=== PATIENT | male | born 1965 | race Caucasian/White ===

== ENCOUNTER → 2019-05-14 15:20 | Outpatient (CLI) | payer OTHER, SELFPAY ==
--- NOTE | ~2019-05-14 | XR_ITS ---
XR ankle RT 2V DATE: 05/14/2019 15:40 INDICATION: Right ankle and foot injury TECHNIQUE: AP and lateral views COMPARISON: None FINDINGS: There is osteoarthritic change at the tibiotalar joint. There is a large chronic ossicle and a smaller ossicle adjacent to the medial malleolus. There is mild soft tissue swelling, greater laterally. No fracture or dislocation of the ankle or dis ruption of the ankle mortise is detected. There is plantar calcaneal enthesopathy. IMPRESSION: No fracture or dislocation; mild soft tissue swelling, greater laterally Reviewed, dictated and finalized at location A. IMPRESSION: No fracture or dislocation; mild soft tissue swelling, greater late rally
--- NOTE | ~2019-05-14 | XR_ITS ---
XR foot RT 2V DATE: 05/14/2019 15:40 INDICATION: Injury TECHNIQUE: AP and lateral views COMPARISON: None FINDINGS: There is hallux valgus and bunion deformity. There is osteoarthritis at the first metatarsophalangeal joint, first tarsometatarsal and tibiotalar joints. Plantar calcaneal enthesopathy. No fracture or dislocation, periosteal reaction or bone destruction. 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
== END ==
PROVIDERS: PCP Family Medicine; Visit Provider Physician Assistant Medical
DX: M20.11 Hallux valgus (acquired), right foot (principal); M19.071 Primary osteoarthritis, right ankle and foot; M77.31 Calcaneal spur, right foot
CPT/HCPCS: 73600; 73620

== ENCOUNTER → 2019-12-22 08:59 | Outpatient (CLI) | payer OTHER, SELFPAY ==
--- NOTE | ~2019-12-22 | US_ITS ---
EXAMINATION: US abdomen complete EXAM DATE: 12/22/2019 09:26 INDICATION: R10.11 - Right upper quadrant pain TECHNIQUE: Multiple grayscale and Doppler images of the complete abdomen were obtained (by a technolo gist who performed the scan) and subsequently reviewed. Comparison is made to prior examination from 07/08/2018. FINDINGS: The abdominal aorta is normal in caliber. Visualized portion IVC is patent. The pancreatic head a nd body are normal in appearance. The pancreatic tail is not visualized. Mildly echogenic liver parenchyma, hepatic steatosis. There are no focal liver lesions identified. There is no evidence of intrahepatic biliary duct dilation. Portal venous flow was seen in the hepa topedal, normal direction and has normal Doppler waveform. Common bile duct measures 4 mm, which is normal. The gallbladder wall is normal in thickness, with ex pected amount of distention. No sonographic evidence of pericholecystic fluid. There is no cholelit hiases. Technologist performing exam reports patient did not demonstrate sonographic Torres's sign. Please note that this sign is less reliable in patients who have received pain medication. Right kidney: There is normal contour and echogenicity. It measures 10.7 x 5.5 x 5.9 centimeters. There are no focal renal lesions identified. There is no hydronephrosis. Left kidney: There is normal contour and echogenicity. It measures 12.7 x 6.4 x 6.8 centimeters. T here are no focal renal lesions identified. There is no hydronephrosis. The spleen measures 14 centimeters and is borderline enlarged, but unchanged compared to 2019. IMPRESSION: 1. Borderline splenomegaly, unchanged. 2. Hepatic steatosis. Reviewed, dictated and finalized at location A. DISEASE MANAGEMENT
== END ==
PROVIDERS: PCP Family Medicine; Visit Provider Family Medicine
DX: R10.11 Right upper quadrant pain (principal); K76.0 Fatty (change of) liver, not elsewhere classified
CPT/HCPCS: 76700

== ENCOUNTER 2021-05-27 07:40 | Outpatient (CLI) | payer OTHER, SELFPAY ==
--- NOTE | ~2021-05-27 | CT_ITS ---
EXAMINATION: CT sinus wo con EXAM DATE: 05/27/2021 07:59 INDICATION: J34.2 Deviated septum, left jaw pain, left nasal polyp . TECHNIQUE: Spiral CT of the sinuses was acquired in the axial plane. Coronal and sagittal reformatte d images were also reviewed. The dose-length product (DLP) for this examination was 275.33 mGy-cm. Iterative reconstruction (ASIR) was used as dose reduction technique. There is no prior study for co mparison. FINDINGS: The sinuses are normally developed. There is some opacity in the left nasal cavity, medi al to the left middle turbinate, and in the anterior ethmoid air cell, could be polyp and/or mucoperi osteal thickening. The sinuses are otherwise well aerated. The ostiomeatal units are patent. There is no sinus wall thickening. There is mild to moderate rightward nasal septal deviation. The mast oid air cells and middle ears are well aerated. External auditory canals are patent. The orbits a nd visualized soft tissues are unremarkable. IMPRESSION: 1. Left nasal cavity, anterior ethmoid polyp or mucoperiosteal thickening. 2. Mild to moderate rightward nasal septal deviation. Reviewed, dictated and finalized at location A.
== END 2021-05-27 07:41 | disposition home or self-care (01) ==
LOC: CHSIMG 07:41
PROVIDERS: PCP Family Medicine; Visit Provider Otolaryngology
DX: J32.9 Chronic sinusitis, unspecified (principal); J34.2 Deviated nasal septum; J34.3 Hypertrophy of nasal turbinates; J34.89 Other specified disorders of nose and nasal sinuses; J33.9 Nasal polyp, unspecified; R51.9 Headache, unspecified
CPT/HCPCS: 70486

== ENCOUNTER → 2021-06-08 14:51 | Outpatient (CLI) | payer OTHER, SELFPAY ==
--- NOTE | ~2021-06-08 | MR_ITS ---
EXAMINATION: MR orbits face neck wo/w con DATE: 06/08/2021 16:49 INDICATION: Encephalocele of other sites. Nasal polyp. TECHNIQUE: Magnetic resonance imaging (MRI) of the face was performed without and with 20 mL MultiHan ce intravenous contrast. COMPARISON: CT sinuses 05/27/2021 FINDINGS: There is an enhancing mass in the left nasal cavity that is contiguous with the anterior cr ibriform plate. The mass measures 4.0 x 2.0 x 0.4 cm. There is no fluid component to suggest an encep halocele. The pituitary is normal. The orbits are normal. IMPRESSION: 1. Polyp in left nasal cavity. Reviewed, dictated and finalized at location B.
[2021-06-08 15:28] LABS: Estimated Glomerular Filt Rate > 60
== END ==
PROVIDERS: PCP Family Medicine; Visit Provider Otolaryngology
DX: Q01.8 Encephalocele of other sites (principal); J33.0 Polyp of nasal cavity
CPT/HCPCS: 70543; A9577

== ENCOUNTER 2021-07-06 15:19 | Outpatient (CLI) | payer OTHER, SELFPAY ==
--- NOTE | 2021-07-06 15:30 | ECG_ITS ---
Measurements Intervals [place] Rate: 74 P: 44 ND: 140 QRS: -17 QRSD: 133 T: 30 QT: 400 QTc: 445 Interpretive Statements SINUS RHYTHM INTRAVENTRICULAR CONDUCTION DELAY POSSIBLE LATERAL MYOCARDIAL INFARCTION, PROBABLY OLD NO PREVIOUS ECG AVAILABLE FOR COMPARISON Electronically Signed On 07-06-2021 15:36:04 CDT by Jeremy Sharpe M.D.
[2021-07-06 15:53] LABS: Anion Gap 7 mmol/L (8-16); Blood Urea Nitrogen 15 mg/dL (9-20); Calcium 9.4 mg/dL (8.4-10.2); Carbon Dioxide 32 mmol/L (22-30); Chloride 102 mmol/L (98-107); Estimated Glomerular Filt Rate > 60; Glucose 98 mg/dL (65-110); Potassium 4.7 mmol/L (3.4-5.0); Sodium 141 mmol/L (137-145)
== END 2021-07-06 15:20 | disposition home or self-care (01) ==
LOC: ANHSURGERY 15:22
PROVIDERS: Anesthesiology; PCP Family Medicine; Visit Provider Otolaryngology
DX: I10 Essential (primary) hypertension (principal); Z79.899 Other long term (current) drug therapy; Z01.818 Encounter for other preprocedural examination; I45.9 Conduction disorder, unspecified
CPT/HCPCS: 36415; 80048; 93005

== ENCOUNTER 2021-07-08 01:37 | Day surgery (SDC) | payer OTHER, SELFPAY ==
[2021-07-05 09:41] VITALS: BMI 36.8
--- NOTE | 2021-07-05 09:47 | PC.NURSE ---
Report to the Outpatient Waiting Room, entrance under the green pavilion located off [facility], at time __0700 on date _07/08/21 . OR Time: 0900__. - You and your visitor will be asked a series of questions to screen for COVID 19 for your protection. - Only one visitor is allowed at this time. - The patient visitor is requested to leave or wait in car when not with patient. - A mask is required within the hospital. Patients may have clear liquids (water, carbonated beverages, clear teas, apple juice) until 3 hours prior to surgery with a maximum of 20 ounces. - No food from midnight until time of surgery - Infants may have breast milk until 4 hours before surgery, formula 6 hours prior to surgery. - Children will be allowed to drink immediately following surgery. If applicable, please bring a bottle or sippy cup to assist with drinking. Juice, water, soda, and popsicles are readily available. For infants on formula, please bring formula the day of surgery. Pacifiers are allowed. Take the following medications with a SIP of water the morning of surgery: ___NONE Medications to discontinue per physician VITAMINS Date to take last dose 07/05/21 Please no make-up, nail serbian, hairspray, perfume, deodorant, or body powder the day of surgery. No jewelry (including any body piercings) or valuables the day of surgery, leave them at home. Please take a shower or bath the night before, or the morning of, surgery with an antibacterial soap. Wear comfortable, loose fitting clothing. Children are encouraged to wear pajamas. - Jewelry must be removed prior to entering the operating room. Rings and piercings that are not removed may be cut off. - The hospital will not accept responsibility for valuables. - Please leave all valuables, including medications, at home the day of surgery. If you are going home after surgery, a licensed helper/driver must drive you home. - NO public transportation without another adult. - We recommend that an adult stay with you for 24 hours following discharge. - We also recommend that you do not drive, make important decision, drink alcoholic beverages, or take any drugs that were not prescribed by your health care provider for at least 24 hours after your discharge time. For Pediatric surgeries, we recommend two adults accompany the child home (only one inside the building at this time). Follow any additional instructions given to you from your surgeon. If you or anyone in your household have experienced Covid symptoms in the past week, please notify your surgeon or the nurse liaison at the phone number below for possible testing. Telephone instructions given to and asked if any additional questions and then verbalized understanding. Patient advised to call surgeon office or pre surgery nurse liaison [phone] if any additional questions.
--- NOTE | 2021-07-07 08:43 | PM.IMHP ---
H&P: HPI History of Present Illness Date/Time: 07/07/21 08:43 Chief Complaint: Nasal obstruction nasal congestion septal deviation turbinate hypertrophy nasal polyps Narrative: patient presents for planned surgical procedure no change in symptoms no change in history PMFSH Past Medical History Medical History BMI 35.0-35.9,adult BMI 36.0-36.9,adult Family History Family History Father Malignant neoplasm of prostate Mother COPD (chronic obstructive pulmonary disease) Dementia Tobacco abuse Sibling Breast cancer COVID-19 Social History Social History Smoking status: Never smoker Tobacco type: cigars Second hand tobacco smoke exposure: Yes Additional smoking assessment comments: 2 CIGARS PER YEAR Alcohol intake: current Drinks per week: 15 Substance use: former Substance use type: does not use Additional occupation/education comments: Fitness Trainer Gender identity (if verbalized by the patient): Male Sexual Orientation (if Verbalized by the Patient): Straight or Heterosexual Meds Home Medications and Allergies Home Medications Medication Instructions Recorded Confirmed Type hydrochlorothiazide 25 mg tablet 50 mg PO DAILY 12/07/20 07/05/21 History azelastine 137 mcg (0.1 %) nasal 1 spray intranasal Q12H PRN 07/05/21 07/05/21 History spray aerosol Congestion fluocinolone acetonide oil 0.01 % 5 drp otic (ear) BID PRN Itching 07/05/21 07/05/21 History ear drops (DermOtic Oil) fluticasone propionate 50 2 spray intranasal BID PRN 07/05/21 07/05/21 History mcg/actuation nasal Congestion spray,suspension (Flonase Allergy Relief) multivitamin with minerals-folic 1 tablet PO DAILY 07/05/21 07/05/21 History acid 200 mcg chewable tablet (Adult Multivitamin Gummies) omega 2-nvv-nca-fish oil 1,200 mg 1 cap PO DAILY 07/05/21 07/05/21 History (144 mg-216 mg) capsule (Fish Oil) prednisone 10 mg tablet 10 mg PO DAILY #3 tabs 07/05/21 Rx Allergies Allergy/AdvReac Type Severity Reaction Status Date / Time No Known Allergies Allergy Verified 05/25/21 07:48 Exam Narrative: normal face exam normal ear exam nasal exam significant for turbinate hypertrophy septal deviation polyps are visible on the left side it middle turbinate with polyps growing from it as well. Assessment and Plan Assessment and plan (1) Nasal septal deviation: Code(s): J34.2 - Deviated nasal septum Status: Acute Assessment and Plan: Plan is for the operating room image guided left-sided middle turbinectomy polypectomy endoscopic assisted septoplasty turbinate reduction submucosally with outfracture. Risks were discussed including high risk of CSF leak brain damage risk of blindness change in vision postoperative bleeding septal perforation need for further procedures need for time off work need for pain medication damage to any structure above the clavicles by myself, damage to any structure in the maintenance and reduction anesthesia. Patent patient voiced understanding and agreed. We also discussed that the treatment for polyps his steroids given the location of these polyps along the skull base the patient would benefit from an xhance type device. patient voiced understanding of this as well. (2) Hypertrophy of both inferior nasal turbinates: Code(s): J34.3 - Hypertrophy of nasal turbinates Status: Acute (3) Nasal obstruction: Code(s): J34.89 - Other specified disorders of nose and nasal sinuses Status: Acute (4) Chronic sinusitis: Code(s): J32.9 - Chronic sinusitis, unspecified Status: Acute (5) Nasal polyps: Code(s): J33.9 - Nasal polyp, unspecified Status: Acute
[2021-07-08] VITALS (8 sets, daily range): BP systolic 144–184; BP diastolic 86–98; PULSE 66–85; RESP 14–21; TEMP 36.7–36.8; O2SAT 92–100
[2021-07-08] MEDS: ACETAMINOPHEN 500 MG TABLET 1000 MG PO (06:42)
[2021-07-08] MEDS: LACTATED RINGERS 1,000 ML 30 ML IV CONT (06:49)
--- NOTE | 2021-07-08 06:54 | WPDANESEPPF ---
Anes - Initial Pre Proc Eval Procedure: Operation Date: 07/08/21 07:30 Proposed Procedures p Image Guided Bilateral Inferior Turbinectomy with Outfracture, Left Polypectomy - Henrique Portillo MD s Endoscopic Septoplasty - Henrique Portillo MD Date/Time: 07/08/21 06:54 Surgeon: Henrique Portillo MD Pre Op Diagnosis: Chronic Sinusitis Patient Data Age: 55 Gender: M Height: 1.8 m Weight: 120 kg Allergies Allergy/AdvReac Type Severity Reaction Status Date / Time No Known Allergies Allergy Verified 07/08/21 06:38 Home Medications Medication Instructions Recorded Confirmed Type hydrochlorothiazide 25 mg tablet 50 mg PO DAILY 12/07/20 07/08/21 History azelastine 137 mcg (0.1 %) nasal 1 spray intranasal Q12H PRN 07/05/21 07/08/21 History spray aerosol Congestion fluocinolone acetonide oil 0.01 % 5 drp otic (ear) BID PRN Itching 07/05/21 07/08/21 History ear drops (DermOtic Oil) fluticasone propionate 50 2 spray intranasal BID PRN 07/05/21 07/08/21 History mcg/actuation nasal Congestion spray,suspension (Flonase Allergy Relief) multivitamin with minerals-folic 1 tablet PO DAILY 07/05/21 07/08/21 History acid 200 mcg chewable tablet (Adult Multivitamin Gummies) omega 4-mhd-tmk-fish oil 1,200 mg 1 cap PO DAILY 07/05/21 07/08/21 History (144 mg-216 mg) capsule (Fish Oil) prednisone 10 mg tablet 10 mg PO DAILY #3 tabs 07/05/21 07/08/21 Rx Patient hx anesthesia problems: none Family hx anesthesia problems: none Results Review: All pre-operative results and documents have been reviewed as part of the pre-operative evaluation. [facility] Past Medical History Medical History (Updated 05/30/21 @ 08:03 by Henrique Portillo MD) BMI 35.0-35.9,adult BMI 36.0-36.9,adult Surgical History Surgical History (Updated 07/08/21 @ 06:54 by Derik Ovalle MD) History of carpal tunnel surgery Family History Family History Father Malignant neoplasm of prostate Mother COPD (chronic obstructive pulmonary disease) Dementia Tobacco abuse Sibling Breast cancer COVID-19 Social History Social History Smoking status: Never smoker Tobacco type: cigars Second hand tobacco smoke exposure: Yes Additional smoking assessment comments: 2 CIGARS PER YEAR Alcohol intake: current Drinks per week: 15 Substance use: former Substance use type: does not use Living arrangements: with family 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 Informed Consent: The patient's anesthetic plan and its attendant risks and benefits were discussed with the patient/family/POA. Questions were solicited and answers provided to the satisfaction of the patient/family/POA.
--- NOTE | 2021-07-08 07:18 | WPDHPUPDATE1 ---
History and Physical Update Update Date/Time: 07/08/21 07:18 History and Physical has been reviewed, including an updated exam of the patient. There are NO changes in the patient's condition. Risks, benefits, and alternatives have been discussed and questions answered. Patient agrees to proceed with procedure.
[2021-07-08] MEDS: ceFAZolin 2 GM/D5W 50 ML 2 GM/50 ML BAG IVPB (07:33)
[2021-07-08] MEDS: OXYMETAZOLINE HCL 0.05% NAS 15 ML BTL (*BKC) 1 SPRAY NASAL (07:43)
--- NOTE | 2021-07-08 09:36 | P.OP_ITS ---
Procedure Note - Detailed Date of Procedure 07/08/21 Pre-op Diagnosis Chronic Sinusitis left sinonasal tumor, nasal obstruction, nasal congestion, septal deviation, turbinate hypertrophy Post-op Diagnosis Same Procedure Performed Endoscopic assisted septoplasty image guided resection of left skull base tumor/polypectomy bilateral submucosal resection of inferior turbinates with outfracture Surgeon Henrique Portillo MD Anesthesia General Indications See above Findings Right septal deviation corrected turbinate hypertrophy corrected left tumor emanating from the skull base removed skull base not violated Description of Procedure Patient identified consent verified. Patient brought operating room. Time-out performed. General anesthesia induced endotracheal tube secured taped left lower lip. Image guidance initiated confirmed. Patient prepped and draped. Second time-out performed. Afrin-soaked pledgets placed allowed to sit for 5 minutes then removed. 0 degree degree endoscope utilized 10 cc total 0% l idocaine 1 100,000 parts epinephrine injected in the bilateral nasal septum and inferior turbinates inferior turbinates reduced 2 mm blade in the submucosal plane bilaterally then outfractured with Blanco good reduction. [place] incision made left side with 15 blade left mucoperichondrial flap with a tear created 7 Syriac suction osteotome utilized to cross over right nasal septal flap elevated no concomitant perforation and or tear no left-sided perforation for that matter. Deviated septum removed combination [place] Dugan forceps Therese and osteotome. [place] incision closed with 3 interrupted 5 0 fast gut sutures. Left middle turbinate slightly lateralized tumor very obvious removed combination microdebrider Therese forceps sufficient amount sent for pathologic analysis should this be lymphoma. Sent for fresh not in formalin. Bleeding was controlled with intermittent application Afrin-soaked pledgets. Small amount of Nova pack placed against the skull base on the left middle turbinate placed back into a neutral position. Stauffer splints then placed. After the bilateral nasal passages were suctioned of the choana. Total blood loss about 35 cc. Stauffer splints sutured anteriorly using a 3-0 mattress nylon suture. Care the patient given Anesthesiology. I performed all dictated portions of the procedure. Complications none apparent. Patient taken to PACU. Estimated Blood Loss 35 Drains No Packing Yes Pathology Yes Complications No immediate complications Condition Stable Disposition PACU
[2021-07-08] MEDS: fentaNYL CITRATE INJ (*CRX) 100 MCG/2 ML VIAL 25 MCG IV PUSH ×2 (09:43→10:39)
[2021-07-08] MEDS: oxyCODONE HCL (*CRX) 5 MG TAB IR PO (10:24)
[2021-07-08] MEDS: ONDANSETRON HCL ODT 4 MG TABLET PO (11:24)
== END 2021-07-08 11:20 | disposition home or self-care (01) ==
PROVIDERS: PCP Family Medicine; Visit Provider Otolaryngology
PROC: (CPT 30140; principal; 2021-07-08 07:30)
PROC: (CPT 30520; 2021-07-08 07:30)
DX: J32.9 Chronic sinusitis, unspecified (principal); J34.2 Deviated nasal septum; J34.3 Hypertrophy of nasal turbinates; J34.89 Other specified disorders of nose and nasal sinuses; J33.9 Nasal polyp, unspecified; J33.8 Other polyp of sinus; Z72.0 Tobacco use; E66.9 Obesity, unspecified; Z68.36 Body mass index [BMI] 36.0-36.9, adult
CPT/HCPCS: 30140; 31299; 61782; 36415; 80048; 88305; 88307; 93005; A9270; J0330; J0690; J1100; J2250; J2405; J2704; J3010; J7120

== ENCOUNTER 2023-06-12 07:46 | Outpatient (CLI) | payer OTHER, SELFPAY ==
--- NOTE | ~2023-06-12 | US_ITS ---
Abdominal Sonogram: Real-time sonographic imaging of the abdomen was performed. Clinical History: Abdominal pain Findings: The liver appears echogenic, with no evidence of mass lesion or bile duct dilatation. Main portal vein demonstrates normal direction of flow. The spleen is minimally enlarged, at 14.1 cm in l ength. The gallbladder is well distended, and demonstrates layering sludge. No gallbladder wall thic kening. The common bile duct measures 5 mm. The visualized pancreas, aorta, and IVC are unremarkable . The right kidney measures 11.1 cm in length and the left kidney measures 11.8 cm. There is no hyd ronephrosis or renal calculus. Impression: Diffuse fatty infiltration of the liver. Minimal splenomegaly. Gallbladder sludge. Reviewed, dictated and finalized at location . Impression: Diffuse fatty infiltration of the liver. Minimal splenomegaly. Gallbladder sludge.
== END 2023-06-12 07:47 ==
PROVIDERS: PCP Family Medicine; Visit Provider Physician Assistant Medical
DX: R10.11 Right upper quadrant pain (principal); K76.0 Fatty (change of) liver, not elsewhere classified
CPT/HCPCS: 76700

== ENCOUNTER 2023-06-28 01:15 | Day surgery (SDC) | payer OTHER, SELFPAY ==
[2023-06-18 13:23] VITALS: BMI 36.6
[2023-06-28 08:42] VITALS: BP 143/80; PULSE 73; RESP 18; TEMP 36.2; O2SAT 98; BMI 35.6
[2023-06-28] MEDS: LACTATED RINGERS 1,000 ML 150 ML IV CONT (09:04)
--- NOTE | 2023-06-28 09:12 | WPDANESEPPF ---
Anes - Initial Pre Proc Eval Procedure: Operation Date: 06/28/23 10:00 Proposed Procedures p Screening Colonoscopy - Zeke Abarca DO Date/Time: 06/28/23 09:12 Surgeon: Zeke Abarca DO Pre Op Diagnosis: Screening for malignant neoplasm of colon Patient Data Age: 57 Gender: M Height: 1.8 m Weight: 115.9 kg Last Vital Signs Temp 36.2 C L 06/28/23 08:42 Pulse 73 06/28/23 08:42 Resp 18 06/28/23 08:42 BP 143/80 H 06/28/23 08:42 Pulse Ox 98 06/28/23 08:42 O2 Del Method Room Air 06/28/23 08:42 Allergies Allergy/AdvReac Type Severity Reaction Status Date / Time No Known Allergies Allergy Verified 06/28/23 08:49 Home Medications Medication Instructions Recorded Confirmed Type hydrochlorothiazide 25 mg tablet 50 mg PO DAILY 12/07/20 06/28/23 History vaxvjcny-hw-wpgfm 300 mcg-K 60 1 tablet PO DAILY 04/17/22 06/28/23 History mcg-lycop 600 mcg-lutein 300 mcg tablet (Men 50 Plus Multivitamin) omega 4-ldp-afa-fish oil 1,200 mg 1 cap PO DAILY 04/17/22 06/28/23 History (144 mg-216 mg) capsule (Fish Oil) Patient hx anesthesia problems: none Family hx anesthesia problems: none Results Review: All pre-operative results and documents have been reviewed as part of the pre-operative evaluation. [facility] Past Medical History Medical History Bilateral foot pain BMI 38.0-38.9,adult Screen for colon cancer Surgical History Surgical History History of carpal tunnel surgery Family History Family History Father Malignant neoplasm of prostate Mother COPD (chronic obstructive pulmonary disease) Dementia Tobacco abuse Sibling Breast cancer COVID-19 Social History Social History Smoking status: Never smoker Tobacco type: cigars Smokeless tobacco user: chewing tobacco Second hand tobacco smoke exposure: Yes Additional smoking assessment comments: 2 CIGARS PER YEAR Alcohol intake: current Drinks per week: 10 Substance use: former Substance use type: does not use Living arrangements: with family Occupation/Education: occupation Additional occupation/education comments: Dye Worker Gender identity (if verbalized by the patient): Male Sexual Orientation (if Verbalized by the Patient): Straight or Heterosexual Spiritual care concerns: No Anes - Eval Final PreProcedure Day of Procedure 06/28/23 09:12 Patient weight: obese Heart: regular rate and rhythm Lungs: clear to auscultation Airway: Mallampati scale Neurological: alert and oriented Last oral intake: >/= 8 hours ASA classification: III Emergent: no Anesthetic plan: proceed Anesthesia type and monitoring: general GIVS and standard monitoring Results Review: All pre-operative results and documents have been reviewed as part of the pre-operative evaluation. Informed Consent: The patient's anesthetic plan and its attendant risks and benefits were discussed with the patient/family/POA. Questions were solicited and answers provided to the satisfaction of the patient/family/POA.
--- NOTE | 2023-06-28 09:28 | PM.IMHP ---
H&P: HPI History of Present Illness Date/Time: 06/28/23 09:28 Chief Complaint: screening for colorectal cancer Narrative: this is a 57-year-old man who presents for colonoscopy. His last colonoscopy was 5 years ago. He had 2 small hyperplastic polyps removed at that time. The patient states that he does notice some occasional blood in his stool. He denies any family history of colon cancer. Review of Systems Review of Systems: All systems reviewed & are unremarkable except as noted in HPI and below Constitutional: Constitutional: Denies chills, Denies fever(s), Denies headache(s) and Denies weight loss Eyes: Eyes: Denies change in vision ENT: Denies dizziness, Denies headache(s), Denies neck mass and Denies throat swelling Cardiovascular: Cardiovascular: Denies chest pain, Denies lightheadedness and Denies dyspnea Respiratory: Respiratory: Denies cough, Denies dyspnea and Denies wheezing Gastrointestinal: Gastrointestinal: Denies abdominal pain, Denies change in bowel habits, Denies nausea and Denies vomiting Genitourinary: Genitourinary: Denies hematuria and Denies dysuria Musculoskeletal: Musculoskeletal: Reports as per HPI Integumentary/Breasts: Skin/Breast: Reports as per HPI Neurologic: Denies dizziness and Denies headache(s) Allergic/Immunologic: Allergic/Immunologic: Denies throat swelling and Denies wheezing PMFSH Past Medical History Medical History Bilateral foot pain BMI 38.0-38.9,adult Screen for colon cancer Surgical History Surgical History History of carpal tunnel surgery Family History Family History Father Malignant neoplasm of prostate Mother COPD (chronic obstructive pulmonary disease) Dementia Tobacco abuse Sibling Breast cancer COVID-19 Social History Social History Smoking status: Never smoker Tobacco type: cigars Smokeless tobacco user: chewing tobacco Second hand tobacco smoke exposure: Yes Additional smoking assessment comments: 2 CIGARS PER YEAR Alcohol intake: current Drinks per week: 10 Substance use: former Substance use type: does not use Living arrangements: with family Occupation/Education: occupation 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 [employer] Gender identity (if verbalized by the patient): Male Sexual Orientation (if Verbalized by the Patient): Straight or Heterosexual Spiritual care concerns: No Meds Home Medications and Allergies Home Medications Medication Instructions Recorded Confirmed Type hydrochlorothiazide 25 mg tablet 50 mg PO DAILY 12/07/20 06/28/23 History iqgdzndv-dl-cblvl 300 mcg-K 60 1 tablet PO DAILY 04/17/22 06/28/23 History mcg-lycop 600 mcg-lutein 300 mcg tablet (Men 50 Plus Multivitamin) omega 9-xue-shw-fish oil 1,200 mg 1 cap PO DAILY 04/17/22 06/28/23 History (144 mg-216 mg) capsule (Fish Oil) Allergies Allergy/AdvReac Type Severity Reaction Status Date / Time No Known Allergies Allergy Verified 06/28/23 08:49 Vital Signs Vital Signs - 24 hr 06/28/23 08:42 Temperature 36.2 C L Pulse Rate 73 Respiratory Rate 18 Blood Pressure 143/80 H Pulse Oximetry 98 Oxygen Delivery Room Air Exam Const: General: no acute distress and alert Orientation/consciousness: patient oriented x3 HENMT: Head: normocephalic and atraumatic Ears: hearing grossly normal bilaterally Face/Nose/Sinus: Normal nares present Mouth: Yes Normal oral and palatal mucosa present Eyes: Periorbital: periorbital findings normal Sclera: sclerae normal EOM: EOMs intact bilaterally Neck: Neck: normal visual inspection, no lymphadenopathy and trachea midline Chest: Chest palpation & inspection: normal inspection of the chest Resp: Effort &
[2023-06-28 10:03] VITALS: BP 117/76; PULSE 64; RESP 18; O2SAT 97
[2023-06-28 10:13] VITALS: BP 125/72; PULSE 65; RESP 22; O2SAT 96
[2023-06-28 10:23] VITALS: BP 117/71; PULSE 67; RESP 15; O2SAT 97
== END 2023-06-28 10:24 | disposition home or self-care (01) ==
PROVIDERS: PCP Family Medicine; Visit Provider Surgery
PROC: 0DJD8ZZ Inspection of Lower Intestinal Tract, Via Natural or Artificial Opening Endoscopic (ICD-10-PCS; CPT 45378; principal; 2023-06-28 10:00)
DX: Z12.11 Encounter for screening for malignant neoplasm of colon (principal); D12.2 Benign neoplasm of ascending colon; D12.8 Benign neoplasm of rectum; K57.30 Diverticulosis of large intestine without perforation or abscess without bleeding; F17.220 Nicotine dependence, chewing tobacco, uncomplicated; E66.9 Obesity, unspecified; Z68.35 Body mass index [BMI] 35.0-35.9, adult
CPT/HCPCS: 45385; 88305; J2704; J7120

== ENCOUNTER 2023-07-04 07:27 | Outpatient (CLI) | payer OTHER, SELFPAY ==
--- NOTE | ~2023-07-04 | NM_ITS ---
EXAMINATION: NM hepatobiliary wo pharm DATE: 07/04/2023 09:55 INDICATION: Other specified diseases of the gallbladder. COMPARISON: Abdomen ultrasound 06/12/2023 TECHNIQUE: 5 mCi Tc-99m mebrofenin (Choletec) was administered intravenously. Scintigraphic images o f the abdomen were obtained for one hour. Then, the patient drank 8 oz Ensure, and imaging was contin ued for 60 minutes. FINDINGS: There is normal clearance of radiotracer from the blood pool. There is homogeneous tracer u ptake by the liver. Activity progresses to the bowel and gallbladder. Gallbladder ejection fraction (GBEF) was 76%. Note that with this technique, normal GBEF >= 33%. IMPRESSION: 1. Normal hepatobiliary scintigraphy. Reviewed, dictated and finalized at location A.
== END 2023-07-04 07:28 | disposition home or self-care (01) ==
PROVIDERS: PCP Family Medicine; Visit Provider Physician Assistant Medical
DX: K82.8 Other specified diseases of gallbladder (principal)
CPT/HCPCS: 78226; A9537

== ENCOUNTER 2024-03-13 12:20 | Outpatient (CLI) | payer OTHER, SELFPAY ==
--- NOTE | ~2024-03-13 | XR_ITS ---
EXAMINATION: XR chest 2V 03/13/2024 12:42 INDICATION: Flu. Upper respiratory infection. Cough and fever. PROCEDURE: 2 view chest COMPARISON: No prior studies for comparison. FINDINGS: The lungs are clear. The cardiomediastinal silhouette is within normal limits. There are no pleural effusions. There is no pneumothorax suspected. IMPRESSION: 1: NO ACUTE CARDIOPULMONARY DISEASE. Reviewed, dictated and finalized at location B. SHELL GATHERER
--- OUTSIDE RECORDS SUMMARY | 2024-03-13 12:24 | XMS_ITS | Continuity of Care Document ---
Author Name [facility] Organization [facility] Care Team Providers Care Pharmacy Intake Coordinator Name Role Phone [facility] Unavailable Unavailable Problems Combined list of problems from [facility] and [facility] facilities. It does not include entries that were removed or entered in error. Problem Status Onset Date Problem Type Date of Resolution Comments Source Chronic Rhinitis ([facility] [id number]) Active Condition [facility] Foot Pain ([facility] [id number]) Active Condition [facility] History of colonic polyp Active Condition [facility] HTN - Hypertension ([facility] [id number]) Active Condition [facility] Inclusion body myositis Active Condition [facility] Jaw pain Active Condition [facility] Mixed [facility]lipidemia Active Condition [facility] Obesity ([facility] [id number]) Active Condition [facility] Obstructive Sleep Apnea Syndrome ([facility] 95714153) Active Condition Sep 23, 2019 Entered By: ELISA LONG Comment: cpap prescribed [facility] Past history of procedure Active Condition Sep 23, 2019 Entered By: ELISA LONG Comment: 1992 left foot neuroma excisionAug 2019 Entered By: ELISA LONG Comment: ~2009 bilateral carpal tunnel releaseAug 2019 Entered By: ELISA LONG Comment: 1988, 1991 wisdom teeth extractionas (3)Sep 23, 2019 Entered By: ELISA LONG Comment: 01/2018 bilateral eye lasik surgery [facility] Tinnitus ([facility] [id number]) Active Condition [facility] Diagnosis: ICD-10-CM E66.812 Obesity, class 2 Active Diagnosis [facility] Diagnosis: ICD-10-CM E78.2 Mixed hyperlipidemia Active Diagnosis [facility] Diagnosis: ICD-10-CM I10 Essential (primary) hypertension Active Diagnosis [facility] Medications Combined list of outpatient medications from Department of Defense and Veterans Affairs facilities.Medications provided include 1) outpatient medications from the last 15 months, and 2) patient-reported medications. Medication Details Route Status Patient Instructions Prescription Expires Prescription Number Last Dispense Date Ordering Provider Order Date Order Qty Source FISH OIL 1000MG (500MG DHA/EPA) CAP,ORAL TAKE 1 CAPSULE BY MOUTH ONCE A DAY ORAL ACTIVE PACE,VICT OR M 2020 [facility] hydroCHLORO thiazide 50 MG ORAL TAB TAKE ONE TABLET BY MOUTH ONCE A DAY FOR BLOOD PRESSURE 09/26/2023 [id number] 4 MET ZACHTISA 2023 90 [facility] HYDROCHLORO THIAZIDE 50MG TAB TAKE ONE TABLET BY MOUTH ONCE A DAY FOR BLOOD PRESSURE ORAL ACTIVE 09/24/2024 [id number] 4 Prashant DIAZIMMA N [address] [facility] HYDROCHLORO THIAZIDE 50MG TAB TAKE ONE TABLET BY MOUTH ONCE A DAY FOR BLOOD PRESSURE ORAL DISCONT INUED 09/26/2023 [id number] 4 ME ZACH TTISA [address] [facility] MULTIVITAMI NS CAP/TAB TAKE ONE TABLET BY MOUTH ONCE A DAY ORAL ACTIVE PACE,VICT OR M 2019 [facility] Immunizations Combined list of available immunizations from the Department of Defense and Veterans Affairs facilities. Immunization Series Date Given Administered By Site Reaction Lot Number CVX Code Drug Historical Archeologist Status Comments Source INFLUENZA, UNSPECIFIED FORMULATION 2021 88 complet ed [facility] ZOSTER RECOMBINANT 2 2021 NONE [address] [facility] COVID-19 (PFIZER), MRNA, LNP-S, PF, 30 MCG/0.3 ML DOSE, VERNON-SUCROSE (AGES 12+ YEARS) 3 2021 217 complet ed [facility] INFLUENZA, UNSPECIFIED FORMULATION 2020 88 complet ed [facility] TDAP 2020 NONE [address] [facility] ZOSTER RECOMBINANT 1 2020 NONE [address] [facility] COVID-19 (PFIZER), MRNA, LNP-S, PF, 30 MCG/0.3 ML DOSE 2 2020 208 complet ed [facility] COVID-19 (PFIZER), MRNA, LNP-S, PF, 30 MCG/0.3 ML DOSE 1 2020 208 complet ed [facility] INFLUENZA, UNSPECIFIED FORMULATION 2019 88 complet ed [facility] Vital Signs Combined list of inpatient and outpatient Vital Signs from [facility] and [facility], ranging from 12 months to all on record, depending upon the facility. Vital Sign Value Date Comments Source SYSTOLIC BLOOD PRESSURE 135 09/24/2023 14:42:39 [facility] DIASTOLIC BLOOD PRESSURE 70 09/24/2023 14:42:39 [facility] PULSE OXIMETRY 97 09/24/2023 14:42:39 [facility] WEIGHT 263 09/24/2023 14:42:39 [facility] BMI 37 kg/m2 09/24/2023 14:42:39 [facility] PAIN 4 09/24/2023 14:42:39 [facility] HEIGHT 71 09/24/2023 14:42:[address] [facility] [facility] TEMPERATURE 98.6 09/24/2023 14:42:39 [facility] PULSE 72 09/24/2023 14:42:[address] [facility] [facility] RESPIRATION 20 09/24/2023 14:42:39 [facility] Encounters Combined list of: 1) Encounters from Department of Veterans Affairs facilities going backup to the last 18 months, not all [place] inpatient encounters are included; 2) Encounters from the Department of [facility] facilities going backup to 280 months. Location Location Details Encounter Type Encounter Number Reason For Visit Attending Provider ADM Date DC Date Status Disposition Source [facility] Outpatient Encounter [id number] KENNA GUZMAN 09/21 [facility] O/P EST MOD 30-39 MIN [id number] Diagnos is: ICD-10- CM I10 Essenti al (primar y) hyperte nsion ZACHMET VU 09/25 [facility] Outpatient Encounter [id number] 09/23 [facility] Outpatient Encounter [id number] 09/23 [facility] OFFICE O/P EST HI 40 MIN [id number] Diagnos is: ICD-10- CM E78.2 Mixed hyperli pidemia EMILY,CH IDIMMA N 09/23 [facility] Outpatient Encounter [id number] 09/24 [facility] Outpatient Encounter [id number] 10/02 [facility] [place] [id number] Diagnos is: ICD-10- CM E66.812 Obesity , class 2 [place] ,KASEY C 12/17 [facility] Outpatient Encounter [id number] 02/27 [facility] Social History Combined list of available smoking, tobacco, and other social history from Department of Defense and Veterans Affairs facilities. Social History Type Response Date Comment Sourc e Tobacco smoking status NHIS [place]-TOBACCO NEVER USED 09/24/2023 [facility] History of tobacco use [facility] NEVER USED 09/25/2022 [facility] History of tobacco use [facility]-TOBACCO NEVER USED 09/22/2021 [facility] History of tobacco use [facility]-TOBACCO FORMER USER 04/19/2020 [facility] History of tobacco use [place]-TO[place]ACCO FORMER USER 08/14/2019 [facility] This section is an empty social history section. DoD
--- OUTSIDE RECORDS SUMMARY | 2024-03-13 12:24 | XMS_ITS | Continuity of Care Document ---
Author Organization [facility] Address [address] [place] [address] Phone Care Team Providers Care Game Bird Farmer Name Role Phone Omari De MD Unavailable Unavailable Advance Directives Directive Yes / No Effective Date File Name No Information Encounters Encounter Description Practice Location Reason(s) For Visit Diagnoses Date Provider Providers Copied on Encounter [facility], [address], [place], [place], [id number], [place] tel:[phone] [address] No Information 1 Kenisha Salcido. [address], [place], [place], [place], [address], [place]. tel:[phone] Family History Family Member Type Diagnosis Age At Onset No Information Payers Payer name Insurance type Covered republican ID Authoriza tion(s) No Information Social History Type Description Quantity Date Captured Comments Sex Male Smoking Status No Information Chief Complaint And Reason For Visit No Information Reason For Referral Reason For Referral No Information History Of Present Illness Encounter Date Complaint History Of Prese nt Illness No Information Functional Status Date Functional Assessmen t No Information Instructions Date Instruction Additional Infor mation No Information Assessments Type Assessment Date No Information Patient Care Teams Name Effective Dates (start - stop) Status Members No Information
== END 2024-03-13 12:21 | disposition home or self-care (01) ==
LOC: CHSIMG 12:21
PROVIDERS: PCP Family Medicine; Visit Provider Nurse Practitioner Adult Health
DX: J10.1 Influenza due to other identified influenza virus with other respiratory manifestations (principal)
CPT/HCPCS: 71046

== ENCOUNTER 2024-09-20 19:52 | Emergency (ER) | payer OTHER, SELFPAY ==
--- NOTE | ~2024-09-20 | XR_ITS ---
EXAM: XR knee LT 3V DATE: 09/20/2024 20:38 HISTORY: pain, swelling . COMPARISON: None available. FINDINGS: Osteopenia. No fracture or dislocation. No lytic or blastic lesion. Joint spaces are maint ained. No erosion or periosteal change. Anterior soft tissue swelling. Quadriceps tendon thickening. Irregular mid and distal patellar tendon. Small-volume joint fluid. IMPRESSION: No acute osseous finding in the left knee. Small left knee joint effusion. Anterior soft tissue swelling. Quadriceps and patellar tendon findings may reflect acute or chronic tendinopathy. Reviewed, dictated and finalized at location K. IMPRESSION: No acute osseous finding in the left knee. Small left knee joint ef fusion. Anterior soft tissue swelling. Quadriceps and patellar tendon findings may reflect acute or chronic tendinopathy.
--- NOTE | ~2024-09-20 | CT_ITS ---
Noncontrast CT scan of the left knee CLINICAL HISTORY: Medial knee intracondylar quadriceps tendon injury TECHNIQUE: Axial noncontrast imaging of the left knee was performed. Sagittal and coronal reformatted images were constructed. Dose reduction technique was used on this scan by utilizing automated expos ure control and iterative reconstruction technique. The dose-length product (DLP) was 743.27 mGy-cm. Findings: No acute fracture or dislocation seen. There are minimal degenerative changes about the kne e. Joint spaces are intact. There is minimal joint effusion. There is prominent prepatellar soft tissue thickening and edema, com patible with hematoma, or possibly bursitis. No gross full-thickness quadriceps tendon tear identifie d on noncontrast CT imaging. Patellar tendon appears intact. No other soft tissue abnormality evident . IMPRESSION: Marked prepatellar soft tissue thickening/edema, compatible with hematoma versus bursitis or other po sttraumatic change/swelling. No gross evidence of high-grade quadriceps tendon tear on noncontrast CT . MRI is recommended for better evaluation of the quadriceps tendon, as indicated. Reviewed, dictated and finalized at [facility]. IMPRESSION: Marked prepatellar soft tissue thickening/edema, compatible with hematoma versu s bursitis or other posttraumatic change/swelling. No gross evidence of high-gr catarino quadriceps tendon tear on noncontrast CT. MRI is recommended for better jazmin luation of the quadriceps tendon, as indicated.
--- OUTSIDE RECORDS SUMMARY | 2024-09-20 19:55 | XMS_ITS | Continuity of Care Document ---
Author Name [facility] Organization [facility] Care Team Providers Care Diamond Assorter Name Role Phone [facility] Unavailable Unavailable Problems Combined list of problems from Department of [facility] and [facility] facilities. It does not include entries that were removed or entered in error. Problem Status Onset Date Problem Type Date of Resolution Comments Source Chronic Rhinitis ([facility] [id number]) Active Condition [facility] Foot Pain ([facility] 89737657) Active Condition [facility] History of colonic polyp Active Condition [facility] HTN - Hypertension ([facility] 87066869) Active Condition [facility] Inclusion body myositis Active Condition [facility] Jaw pain Active Condition [facility] Mixed hyperlipidemia Active Condition [facility] Obesity ([facility] 472471888) Active Condition [facility] Obstructive Sleep Apnea Syndrome ([facility] 11786089) Active Condition Sep 23, 2019 Entered By: ELISA LONG Comment: cpap prescribed [facility] Past history of procedure Active Condition Sep 23, 2019 Entered By: ELISA LONG Comment: 1992 left foot neuroma excisionAug 2019 Entered By: ELISA LONG Comment: ~2009 bilateral carpal tunnel releaseAug 2019 Entered By: ELISA LONG Comment: 1988, 1991 wisdom teeth extractionas (3)Sep 23, 2019 Entered By: ELISA LONG Comment: 01/2018 bilateral eye lasik surgery [facility] Tinnitus ([facility] [id number]) Active Condition [facility] Diagnosis: ICD-10-CM G47.33 Obstructive sleep apnea (adult) (pediatric) Active Diagnosis [facility] Diagnosis: ICD-10-CM E66.812 Obesity, class 2 Active Diagnosis [facility] Diagnosis: ICD-10-CM E78.2 Mixed hyperlipidemia Active Diagnosis [facility] Medications Combined list of outpatient medications from [...] DAY ORAL ACTIVE PACE,VICT OR M 2020 [facility] hydroCHLORO thiazide 50 MG ORAL TAB TAKE ONE TABLET BY MOUTH ONCE A DAY FOR BLOOD PRESSURE 09/26/2023 [id number] 4 MET ZACHTISA 2023 90 [facility] HYDROCHLORO THIAZIDE 50MG TAB TAKE ONE TABLET BY MOUTH ONCE A DAY FOR BLOOD PRESSURE ORAL ACTIVE 09/24/2024 [id number] 5 Prashant DIAZ HIDIMMA N 2023 90 [facility] HYDROCHLORO THIAZIDE 50MG TAB TAKE ONE TABLET BY MOUTH ONCE A DAY FOR BLOOD PRESSURE ORAL DISCONT INUED 09/26/2023 [id number] 4 ME ZACH TTISA 2022 90 [facility] MULTIVITAMI NS CAP/TAB TAKE ONE TABLET BY MOUTH ONCE A DAY ORAL ACTIVE PACE,VICT OR M 2019 [facility] Immunizations Combined list of available immunizations from the Department of Defense and Veterans Affairs facilities. Immunization Series Date Given Administered By Site Reaction Lot Number CVX Code Drug Patient Care Assistant Status Comments Source INFLUENZA, UNSPECIFIED FORMULATION 2021 88 complet ed Completed Series, HISTORICA L INFORMATI ON - FROM PATIENT'S RECALL, [facility] ZOSTER RECOMBINANT 2 2021 NONE 187 complet ed [facility] COVID-19 (PFIZER), MRNA, LNP-S, PF, 30 MCG/0.3 ML DOSE, VERNON-SUCROSE (AGES 12+ YEARS) 3 2021 217 complet ed [facility] INFLUENZA, UNSPECIFIED FORMULATION 2020 88 complet ed [facility] TDAP 2020 NONE 115 complet ed Completed Series, . [facility] ZOSTER RECOMBINANT 1 2020 NONE 187 complet ed [facility] COVID-19 (PFIZER), MRNA, LNP-S, PF, 30 MCG/0.3 ML DOSE 2 2020 208 complet ed [facility] COVID-19 (PFIZER), MRNA, LNP-S, PF, 30 MCG/0.3 ML DOSE 1 2020 208 complet ed [facility] INFLUENZA, UNSPECIFIED FORMULATION 2019 88 complet ed [facility] Vital Signs Combined list of inpatient and outpatient Vital Signs from Department of Defense and Veterans [facility], ranging from 12 months to all on record, depending upon the facility. Vital Sign Value Date Comments Source SYSTOLIC BLOOD PRESSURE 135 09/24/2023 14:42:39 [facility] DIASTOLIC BLOOD PRESSURE 70 09/24/2023 14:42:39 [facility] PULSE OXIMETRY 97 09/24/2023 14:42:[address] [facility] WEIGHT 263 09/24/2023 14:42:39 [facility] BMI 37 kg/m2 09/24/2023 14:42:39 [facility] PAIN 4 09/24/2023 14:42:39 [facility] HEIGHT 71 09/24/2023 14:42:39 [facility] TEMPERATURE 98.6 09/24/2023 14:42:39 [facility] PULSE 72 09/24/2023 14:42:39 [facility] RESPIRATION 20 09/24/2023 14:42:[address] [facility] Encounters Combined list of: 1) Encounters from Department of Veterans Affairs facilities going backup to the last 18 months, not all [facility] inpatient encounters are included; 2) Encounters from the Department of Defense facilities going backup to 280 months. Location Location Details Encounter Type Encounter Number Reason For Visit Attending Provider ADM Date DC Date Status Disposition Source [facility] Outpatient Encounter [id number] 09/23 [facility] Outpatient Encounter [id number] 09/23 [facility] OFFICE O/P [place] 40 MIN [id number] Diagnos is: ICD-10- CM E78.2 Mixed hyperli pidemia EMILY,CH IDIMMA N 09/23 [facility] Outpatient Encounter [id number] 09/24 [facility] Outpatient Encounter [id number] 10/02 [facility] [place] [id number] Diagnos is: ICD-10- CM E66.812 Obesity , class 2 KASEY SMITH C 12/17 [facility] Outpatient Encounter [id number] 02/27 [facility] PH1 ASSMT&MGMT NQHP 5-10 [id number] Diagnos is: ICD-10- CM G47.33 Obstruc tive sleep apnea (adult) (pediat nevin) KALYN RHOADES OLE A 09/10 [facility] Social History Combined list of available smoking, tobacco, and other social history from Department of Defense and Veterans Affairs facilities. Social History Type Response Date Comment Sourc e Tobacco smoking status NHIS [facility]-TOBACCO NEVER USED 09/24/2023 [facility] History of tobacco use [facility]-TOBACCO NEVER USED 09/25/2022 [facility] History of tobacco use OR-TOBACCO NEVER USED 09/22/2021 [facility] History of tobacco use OR-TOBACCO FORMER USER 04/19/2020 [facility] History of tobacco use OR-TOBACCO FORMER USER 08/14/2019 [facility] This section is an empty social history section. [facility] Plan of Care List of future care activities from Department of Veterans Affairs facilities. Additional future care activities may be listed in the Assessment and Plan section. Date/Time Care Activity Care Activity Detail Facili ty 09/23/2024 AMBULATORY - NONE AMBULATORY - NONE [facility]
--- OUTSIDE RECORDS SUMMARY | 2024-09-20 19:55 | XMS_ITS ---
Author Organization Unknown ENCOUNTERS Encounter Performer Location Date Diagnosis Diagnosis Status Pre Admit [facility] [address] [place] [address] [id number] Outpatient [facility] [address] [place] [address] [id number] [place] Outpatient Ruth David [facility] [address] [place] [address] [id number] [place] Outpatient Zeke Abarca [facility] [address] [place] [address] [id number] [place] Outpatient [facility] [address] [place] [id number] [place] Outpatient [facility] [address] [place] [address] [id number] [place] Outpatient [facility] [address] [place] [address] [id number] MELODY *Note: Encounters from your own facility or health system may be excluded. Allergies, Adverse Reactions, Alerts Allergen Type Severity Identification Date Medications Name Date Quantity Days Supplied GPI Number
--- OUTSIDE RECORDS SUMMARY | 2024-09-20 19:55 | XMS_ITS | Continuity of Care Document ---
Author Organization [facility] Address [address] [place] [address] Phone Care Team Providers Care Dry Talc Racker Name Role Phone Omari De MD Unavailable Unavailable Advance Directives Directive Yes / No Effective Date File Name No Information Encounters Encounter Description Practice Location Reason(s) For Visit Diagnoses Date Provider Providers Copied on Encounter [facility], [address], [place], [place], [id number], [place] tel:[phone] SEC Kj [place] Professional No Information 1 Kenisha Salcido. [address] [facility] [address], [place], [place], [address], [place]. tel:[phone] Family History Family Member Type Diagnosis Age At Onset No Information Payers Payer name Insurance type Covered green party ID Authoriza tion(s) No Information Social History [...]
[2024-09-20 20:06] VITALS: BP 151/87; PULSE 83; RESP 19; TEMP 36.6; O2SAT 98
[2024-09-21] MEDS: KETOROLAC 10 MG TABLET PO (00:44)
[2024-09-21] MEDS: ACETAMINOPHEN 500 MG TABLET 1000 MG PO (00:45)
--- NOTE | 2024-09-21 00:48 | ED.LOWEXIN ---
HPI - Extremity Injury (Lower) General Chief Complaint: Extremity Injury, Lower Stated Complaint: Knee pain Time Seen by Provider: 09/20/24 23:45 History of Present Illness HPI Narrative: 58-year-old male presenting to the emergency room with left knee pain that was sudden onset after he had a twisting motion and injury and felt a pop in his knee. He states he was trying to get out of his truck and twisted while getting out and had significant pain. States he was having difficulty bearing weight but was ambulatory here in triage infected the examination room. Has a history of plantar fasciitis on the same extremity but denies any surgical history or interventions on the knee previously. No previously known meniscal injuries or tendon injuries. Did not take anything for pain prior to arrival. Endorses no significant pain at rest and feels like he had a snap in pulling sensation superiorly towards quadriceps. Pain with range of motion and palpation over the medial aspect of the left knee. No overlying skin changes aside from minor swelling. Related Data Home Medications ?Medication ?Instructions ?Recorded ?Confirmed ?Last Taken ?Type hydrochlorothiazide 25 mg tablet 50 mg PO DAILY 12/07/20 06/04/24 07/07/21 History ilzhmrwn-rs-aiofb 300 mcg-K 60 1 tablet PO DAILY 04/17/22 06/04/24 Unknown History mcg-lycop 600 mcg-lutein 300 mcg tablet (Men 50 Plus Multivitamin) omega 9-hwv-vqs-fish oil 1,200 mg 1 cap PO DAILY 04/17/22 06/04/24 Unknown History (144 mg-216 mg) capsule (Fish Oil) cholecalciferol (vitamin D3) 25 25 mcg PO DAILY 06/04/24 06/04/24 Unknown History mcg (1,000 unit) capsule Allergies Allergy/AdvReac Type Severity Reaction Status Date / Time No Known Allergies Allergy Verified 09/20/24 19:53 Review of Systems Review of Systems: As reviewed above in HPI [facility] Past Medical History Medical History Influenza A with respiratory manifestations BMI 38.0-38.9,adult Screen for colon cancer Bilateral foot pain Surgical History Surgical History History of carpal tunnel surgery Family History Family History Father Malignant neoplasm of prostate Mother COPD (chronic obstructive pulmonary disease) Dementia Tobacco abuse Sibling Breast cancer COVID-19 Social History Social History Smoking status: Never smoker Tobacco type: cigars Smokeless tobacco user: chewing tobacco Second hand tobacco smoke exposure: Yes Additional smoking assessment comments: 2 CIGARS PER YEAR Alcohol intake: current Drinks per week: 10 Substance use: former Substance use type: does not use Living arrangements: with family Occupation/Education: occupation 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 Mucous membranes moist. NECK: Supple. CHEST: [Clear to auscultation. No respiratory distress.] HEART: [Regular rate and rhythm]. No murmur heard. [Normal peripheral pulses.] ABDOMEN: [Soft, nondistended], [nontender], [No rigidity or guarding] EXTREMITIES: Tenderness to palpation over the medial aspect left knee, mild suprapatellar joint effusion. Extensor mechanism impaired mildly with effort against gravity but he is able to initiate and hold his leg up mostly. Plantar and ankle dorsiflexion without any restricted range of motion and dorsiflexion does elicit some pain at the right knee. Tenderness medial joint line, medial patella, no lateral pain or laxity with valgus or varus stress testing. Negative Marisa's test. 2+ distal pulses, warm extremity. No signs of bruising. SKIN: Warm, dry, no rash. NEURO: [No focal deficits]. Alert and oriented [x3.] PSYCH: [Normal mood and affect.] Course Vital Signs Vital signs: Vital Signs Temperature 36.6 C 09/20/24 20:06 Pulse Rate 83 09/20/24 20:06 Respiratory Rate 19 09/20/24 20:06 Blood Pressure 151/87 H 09/20/24 20:06 Pulse Oximetry 98 09/20/24 20:06 Oxygen Delivery Room Air 09/20/24 20:06 Temperature 36.6 C 09/20/24 20:06 Pulse Rate 83 09/20/24 20:06 Respiratory Rate 19 09/20/24 20:06 Blood Pressure 151/87 H 09/20/24 20:06 Pulse Oximetry 98 09/20/24 20:06 Oxygen Delivery Room Air 09/20/24 20:06 MDM - Extremity Injury (Lower) MDM Narrative Medical decision making narrative: 58-year-old male presenting to the emergency room with left knee pain that was sudden onset after he had a twisting motion and injury and felt a pop in his knee. He states he was trying to get out of his truck and twisted while getting out and had significant pain. States he was having difficulty bearing weight but was ambulatory here in triage infected the examination room. Has a history of plantar fasciitis on the same extremity but denies any surgical history or interventions on the knee previously. No previously known meniscal injuries or tendon injuries. Did not take anything for pain prior to arrival. Endorses no significant pain at rest and feels like he had a snap in pulling sensation superiorly towards quadriceps. Pain with range of motion and palpation over the medial aspect of the left knee. No overlying skin changes aside from minor swelling. Tenderness to palpation over the medial aspect left knee, mild suprapatellar joint effusion. Extensor mechanism impaired mildly with effort against gravity but he is able to initiate and hold his leg up mostly. Plantar and ankle dorsiflexion without any restricted range of motion and dorsiflexion does elicit some pain at the right knee. Tenderness medial joint line, medial patella, no lateral pain or laxity with valgus or varus stress testing. Negative Marisa's test. 2+ distal pulses, warm extremity. No signs of bruising. Patient is hemodynamically stable, no acute distress, examination consistent with potential ligamentous injury versus quadriceps tendon injury. Low suspicion fracture given no traumatic injury. X-rays were obtained which shows a joint effusion as well as some tendinopathy evident. No fractures. CT without contrast for further evaluation. Patient given pain control medications and a knee immobilizer as well as crutches for ambulation assistance. Will have to follow up with Orthopedics depending on results and findings. CT shows prominent contusive changes overlying the patella as well as a small collection of hemorrhagic products from the injury. Subcutaneous fat stranding evident but not seen externally on examination. No subcutaneous emphysema or foreign body. No osseous traumatic injuries, patellar tendon appears preserved. No obvious osteochondral defect. Patient was informed of his CT results and placed in a knee immobilizer and given prescriptions for Toradol and lidocaine patches as well as Tylenol and referral to Orthopedics. Ambulatory with crutches without difficulty and safely discharged. Medical Records Attestation: I reviewed the patient's medical records. Imaging Data Attestation: I personally reviewed and interpreted this imaging study as follows: My impression: No acute osseous abnormality, contused of changes in the patella with small amount of blood products Discharge Plan Discharge Clinical Impression: Left knee sprain, Contusion of knee, left, Effusion, left knee Patient Disposition: Home Condition: Stable Instructions: Antibiotic Form Additional Instructions: You have what appears to be a knee sprain and contusion to the medial aspect of your left knee, small amounts of blood product from the injury pattern self but no active bleeding. Clinical exam is stable, no signs of any osseous traumatic injuries, patellar tendon appears normal. Follow-up with Orthopedics, return with any emergent concerns. Wear the knee immobilizer and use the anti-inflammatories as prescribed. Patient Language: Bengali Prescriptions: New acetaminophen [Tylenol Extra Strength] 500 mg tablet 1,000 mg PO TID PRN (Reason: pain) Qty: 30 0RF ketorolac 10 mg tablet 10 mg PO Q8H PRN (Reason: pain) 5 Days Qty: 20 0RF Rx Instructions: maximum total duration of 5 days from all oral, intranasal, or parenteral formulations lidocaine 5 % adhesive patch,medicated 1 patch topical DAILY Qty: 15 0RF Rx Instructions: leave on most painful area for up to 12 hrs No Action hydrochlorothiazide 25 mg tablet 50 mg PO DAILY Men 50 Plus Multivitamin 300-600-300 mcg tablet 1 tablet PO DAILY omega 6-aoa-hry-fish oil [Fish Oil] 1,200 (144-216) mg capsule 1 cap PO DAILY fluocinolone acetonide oil [DermOtic Oil] 0.01 % drops 5 drp otic (ear) BID PRN (Reason: Itching) Qty: 20 1RF cholecalciferol (vitamin D3) 25 mcg (1,000 unit) capsule 25 mcg PO DAILY Follow-up/Referrals: Grebing,Favian R., MD [Physician] - 3 Days (Knee sprain, hemarthrosis?) Chet Sánchez MD [Primary Care Provider] - Stand Alone Forms: Work/School Release IP Time of Disposition: 02:26
--- OUTSIDE RECORDS SUMMARY | 2024-09-21 00:53 | XMS_ITS | Continuity of Care Document ---
Author Organization [facility] Address [address] [place] [address] Phone Care Team Providers Care Research Quality Assurance Analyst Name Role Phone Omari De MD Unavailable Unavailable Advance Directives Directive Yes / No Effective Date File Name No Information Encounters Encounter Description Practice Location Reason(s) For Visit Diagnoses Date Provider Providers Copied on Encounter [facility], [address], [place], [place], [id number], [place] tel:[phone] SEC Kj [place] Professional No Information 1 Kenisha Salcido. [address] [facility] [address], [place], [place], [address], [place]. tel:[phone] Family History Family Member Type Diagnosis Age At Onset No Information Payers Payer name Insurance type Covered democrat ID Authoriza tion(s) No Information Social History [...]
--- OUTSIDE RECORDS SUMMARY | 2024-09-21 00:53 | XMS_ITS | Continuity of Care Document ---
Author Name [facility] Organization [facility] Care Team Providers Care Motor Man Name Role Phone [facility] Unavailable Unavailable Problems Combined list of problems from Department of [facility] and [facility] facilities. It does not include entries that were removed or entered in error. Problem Status Onset Date Problem Type Date of Resolution Comments Source Chronic Rhinitis ([facility] [id number]) Active Condition [facility] Foot Pain ([facility] [id number]) Active Condition [facility] History of colonic polyp Active Condition [facility] HTN - Hypertension ([facility] [id number]) Active Condition [facility] Inclusion body myositis Active Condition [facility] Jaw pain Active Condition [facility] Mixed hyperlipidemia Active Condition [facility] Obesity ([facility] [id number]) Active Condition [facility] Obstructive Sleep Apnea Syndrome ([facility] [id number]) Active Condition Sep 23, 2019 Entered By: ELISA LONG Comment: cpap prescribed [facility] Past history of procedure Active Condition Sep 23, 2019 Entered By: ELISA LONG Comment: 1992 left foot neuroma excisionAug 2019 Entered By: ELISA LONG Comment: ~2009 bilateral carpal tunnel releaseAug 2019 Entered By: ELISA LONG Comment: 1988, 1991 wisdom teeth extractionas (3)Sep 23, 2019 Entered By: ELISA LONG Comment: 01/2018 bilateral eye lasik surgery [facility] Tinnitus ([facility] [id number]) Active Condition [facility] Diagnosis: ICD-10-CM G47.33 Obstructive sleep apnea (adult) (pediatric) Active Diagnosis [facility] Diagnosis: ICD-10-CM E66.812 Obesity, class 2 Active Diagnosis [facility] Diagnosis: ICD-10-CM E78.2 Mixed hyperlipidemia Active Diagnosis [facility] Medications Combined list of outpatient medications [...] DAY ORAL ACTIVE PACE,VICT OR M 2020 [facility] hydroCHLORO thiazide 50 MG ORAL TAB TAKE ONE TABLET BY MOUTH ONCE A DAY FOR BLOOD PRESSURE 09/26/2023 [id number] 4 MET ZACHTISA 2023 90 [facility] HYDROCHLORO THIAZIDE 50MG TAB TAKE ONE TABLET BY MOUTH ONCE A DAY FOR BLOOD PRESSURE ORAL ACTIVE 09/24/2024 [id number] 5 Prashant DIAZ HIDIMMA N 2023 90 [facility] HYDROCHLORO THIAZIDE 50MG TAB TAKE ONE TABLET BY MOUTH ONCE A DAY FOR BLOOD PRESSURE ORAL DISCONT INUED 09/26/2023 [id number] 4 ME ZACH TTISA 2022 90 [facility] MULTIVITAMI NS CAP/TAB TAKE ONE TABLET BY MOUTH ONCE A DAY ORAL ACTIVE PACE,VICT OR M 2019 [facility] Immunizations Combined list of available immunizations from the Department of Defense and Veterans Affairs facilities. Immunization Series Date Given Administered By Site Reaction Lot Number CVX Code Drug Cabinet Builder Status Comments Source INFLUENZA, UNSPECIFIED FORMULATION 2021 88 complet ed Completed Series, HISTORICA L INFORMATI ON - FROM PATIENT'S RECALL, [facility] ZOSTER RECOMBINANT 2 2021 NONE 187 complet ed [facility] COVID-19 (PFIZER), MRNA, LNP-S, PF, 30 MCG/0.3 ML DOSE, VERNON-SUCROSE (AGES 12+ YEARS) 3 2021 217 complet ed [facility] INFLUENZA, UNSPECIFIED FORMULATION 2020 88 complet ed [facility] TDAP 2020 NONE 115 complet ed Completed Series, . [facility] ZOSTER RECOMBINANT 1 2020 NONE 187 complet ed [facility] COVID-19 (PFIZER), MRNA, LNP-S, PF, 30 MCG/0.3 ML DOSE 2 2020 208 complet ed [facility] COVID-19 (PFIZER), MRNA, LNP-S, PF, 30 MCG/0.3 ML DOSE 1 2020 208 complet ed [facility] INFLUENZA, UNSPECIFIED FORMULATION 2019 88 complet ed [facility] Vital Signs Combined list of inpatient and outpatient Vital Signs from Department of Defense and [facility], ranging from 12 months to all on record, depending upon the facility. Vital Sign Value Date Comments Source SYSTOLIC BLOOD PRESSURE 135 09/24/2023 14:42:39 [facility] DIASTOLIC BLOOD PRESSURE 70 09/24/2023 14:42:39 [facility] PULSE OXIMETRY 97 09/24/2023 14:42:39 [facility] WEIGHT 263 09/24/2023 14:42:39 [facility] BMI 37 kg/m2 09/24/2023 14:42:39 [facility] PAIN 4 09/24/2023 14:42:39 [facility] HEIGHT 71 09/24/2023 14:42:[facility] TEMPERATURE 98.6 09/24/2023 14:42:39 [facility] PULSE 72 09/24/2023 14:42:39 [facility] RESPIRATION 20 09/24/2023 14:42:39 . [facility] Encounters Combined list of: 1) Encounters from Department of Veterans Affairs facilities going backup to the last 18 months, not all VA inpatient encounters are included; 2) Encounters from the Department of Defense facilities going backup to 280 months. Location Location Details Encounter Type Encounter Number Reason For Visit Attending Provider ADM Date DC Date Status Disposition Source [facility] Outpatient Encounter [id number] 09[facility] Outpatient Encounter [id number] 09/[address] [facility] OFFICE O/P EST HI 40 MIN [id number] Diagnos is: ICD-10- CM E78.2 Mixed hyperli pidemia EMILY,CH IDIMMA N 09/23 [facility] Outpatient Encounter [id number] 09/24 [facility] Outpatient Encounter [id number] 10/[address] [facility] [place] [id number] Diagnos is: ICD-10- CM E66.812 Obesity , class 2 KASEY SMITH C 12/17 [facility] Outpatient Encounter [id number] 02/27 [facility] N [facility] PH1 ASSMT&MGMT NQHP 5-10 [id number] Diagnos is: ICD-10- CM G47.33 Obstruc tive sleep apnea (adult) (pediat nevin) KALYN RHOADES OLE A 09/10 [facility] Social History Combined list of available smoking, tobacco, and other social history from Department of Defense and Veterans Affairs facilities. Social History Type Response Date Comment Sourc e Tobacco smoking status NHIS VA-TOBACCO NEVER USED 09/24/2023 [facility] History of tobacco use VA-TOBACCO NEVER USED 09/25/2022 [facility] History of tobacco use MT-TOBACCO NEVER USED 09/22/2021 [facility] History of tobacco use MT-TOBACCO FORMER USER 04/19/2020 [facility] History of tobacco use MT-TOBACCO FORMER USER 08/14/2019 [facility] This section is an empty social history section. [facility] Plan of Care List of future care activities from Department of Veterans Affairs facilities. Additional future care activities may be listed in the Assessment and Plan section. Date/Time Care Activity Care Activity Detail Facili ty 09/23/2024 AMBULATORY - NONE AMBULATORY - NONE [facility] Prash[facility] LU[facility]
[2024-09-21 03:10] VITALS: BP 137/76; PULSE 67; RESP 16; TEMP 37; O2SAT 98
== END 2024-09-21 03:11 | disposition home or self-care (01) ==
PROVIDERS: Emergency Provider Student in an Organized Health Care Education/Training Program; PCP Family Medicine
DX: S83.92XA Sprain of unspecified site of left knee, initial encounter (principal); F17.290 Nicotine dependence, other tobacco product, uncomplicated; F17.220 Nicotine dependence, chewing tobacco, uncomplicated; X50.9XXA Other and unspecified overexertion or strenuous movements or postures, initial encounter
CPT/HCPCS: 73562; 73700; 99284; A9270

== ENCOUNTER 2025-01-26 14:26 | Outpatient (CLI) | payer OTHER, SELFPAY | END 2025-01-26 14:27 | disposition home or self-care (01) | PROVIDERS: PCP Family Medicine; Visit Provider Otolaryngology | DX: J31.0 Chronic rhinitis (principal) | CPT/HCPCS: 92557; 92567 ==